=== PATIENT | female | born 1985 ===

== ENCOUNTER → 2017-07-08 | Emergency (ER) | payer OTHER ==
[~2017-07-08] VITALS: Ht 160 cm; Wt 61.2 kg
[~2017-07-08] MED LIST: KETO10TA2 PO; NORFLEX100MG PO
== END | disposition home or self-care (01) ==
LOC: ER 07:49
DX: M54.5 Low back pain (principal)

== ENCOUNTER 2017-09-11 21:48 | Emergency (ER) | payer OTHER ==
[~2017-09-11] VITALS: Ht 160 cm; Wt 70.8 kg
[2017-09-12] MEDS ORDERED: PEPCID40 MG PO (04:03)
[2017-09-12] MEDS ORDERED: ZOFRAN ODT4 MG PO (04:03)
== END 2017-09-12 03:54 | disposition home or self-care (01) ==
LOC: ER 21:48
DX: K52.9 Noninfective gastroenteritis and colitis, unspecified (principal)